=== PATIENT | male | born 2000 | race Caucasian/White ===

== ENCOUNTER 2021-11-28 18:20 | Emergency (ER) | payer OTHER ==
[~2021-11-28] VITALS: Ht 190.5 cm; Wt 74.8 kg
== END 2021-11-28 19:46 | disposition home or self-care (01) ==
LOC: ER 18:20
DX: S61.221A Laceration with foreign body of left index finger without damage to nail, initial encounter (principal); W45.8XXA Other foreign body or object entering through skin, initial encounter; Y93.9 Activity, unspecified; Y92.9 Unspecified place or not applicable